=== PATIENT | male | born 1980 | race Caucasian/White ===

== ENCOUNTER 2018-08-06 14:11 | Emergency (ER) | payer BC ==
--- NOTE | 2018-08-06 14:18 | PDOC ---
History of Present Illness - General Chief Complaint: Pain Stated Complaint: ABDOMINAL PAIN LOOSE STOOL Time Seen by Provider: 08/06/18 14:16 - History of Present Illness Initial Comments: 08/06/18 14:17 Mr. Calvert is a 37 yo male w/ no significant pmh who presents for evaluation of diarrhea. Patient reports symptoms first started Jul.14 when he returned from [place] and experienced abdominal pain and diarrhea. He had initially attributed this to traveler's diarrhea and says that his symptoms went away after a few days, however they started again last Saturday (08/01) and he has since had several days of diarrhea with subjective fevers and chills; nausea; and intermittent generalized abdominal pain. The patient denies chest pain, shortness of breath, headache and dizziness. Denies dysuria, frequency, urgency and hematuria. Past History - Past Medical History Allergies/Adverse Reactions: Allergies Allergy/AdvReac Type Severity Reaction Status Date / Time No Known Allergies Allergy Verified 08/06/18 14:20 Home Medications: Ambulatory Orders Ondansetron HCl [Zofran] 4 mg PO TID PRN #15 tablet 08/06/18 Disorders: Yes (PUD YEARS AGO) - Suicide/Smoking/Psychosocial Hx Smoking History: Current some day smoker Number of Cigarettes Smoked Daily: 0 'Breaking Loose' booklet given: 11/04/14 Hx Alcohol Use: Yes (NOT DAILY) Substance Use Type: None Review of Systems - Review of Systems Comments:: 08/06/18 14:17 GENERAL/CONSTITUTIONAL: No fever or chills. No weakness. HEAD, EYES, EARS, NOSE AND THROAT: No change in vision. No ear pain or discharge. No sore throat. CARDIOVASCULAR: No chest pain or shortness of breath RESPIRATORY: No cough, wheezing, or hemoptysis. GASTROINTESTINAL: +Abdominal pain with diarrhea as described. No constipation. GENITOURINARY: No dysuria, frequency, or change in urination. MUSCULOSKELETAL: No joint or muscle swelling or pain. No neck or back pain. SKIN: No rash NEUROLOGIC: No headache, vertigo, loss of consciousness, or change in strength/ sensation. ENDOCRINE: No increased thirst. No abnormal weight change HEMATOLOGIC/LYMPHATIC: No anemia, easy bleeding, or history of blood clots. ALLERGIC/IMMUNOLOGIC: No hives or skin allergy. *Physical Exam - Physical Exam Comments: 08/06/18 14:17 GENERAL: Awake, alert, and fully oriented, in no acute distress HEAD: No signs of trauma, normocephalic, atraumatic EYES: PERRLA, EOMI, sclera anicteric, conjunctiva clear ENT: Auricles normal inspection, hearing grossly normal, nares patent, oropharynx clear without exudates. Moist mucosa NECK: Normal ROM, supple, no lymphadenopathy, JVD, or masses LUNGS: No distress, speaks full sentences, clear to auscultation bilaterally HEART: Regular rate and rhythm, normal S1 and S2, no murmurs, rubs or gallops, peripheral pulses normal and equal bilaterally. ABDOMEN: +Minimal abdominal generalized tenderness. Soft, normoactive bowel sounds. No guarding, no rebound. No masses EXTREMITIES: Normal inspection, Normal range of motion, no edema. No clubbing or cyanosis. NEUROLOGICAL: Cranial nerves II through XII grossly intact. Normal speech, normal gait, no focal sensorimotor deficits SKIN: Warm, Dry, normal turgor, no rashes or lesions noted. ED Treatment Course - LABORATORY CBC & Chemistry Diagram: 08/06/18 14:51 08/06/18 14:51 Medical Decision Making - Medical Decision Making 08/06/18 16:05 Mr. Calvert is a 37 yo male w/ pmh as described who presents for evaluation of symptoms concerning for infection vs. viral illness. Patient workup started as below with electrolytes, CBC, stool culture and ova and parasite exam (stool). Patient labs grossly wnl. No concerning findings at this time. Will discharge patient with callback for stool cultures and O/P exam results. Patient reporting improvement of symptoms with 1L NS IV Hydration. Zofran sent to patient's pharmacy for further symptomatic relief. Laboratory Results - last 24 hr 08/06/18 08/06/18 08/06/18 14:51 14:51 14:51 WBC 4.8 RBC 4.47 Hgb 13.5 Hct 40.2 MCV 90.0 MCH 30.2 MCHC 33.5 RDW 11.4 L Plt Count 287 MPV 8.0 Absolute Neuts (auto) 2.6 Neutrophils % 52.5 Lymphocytes % 33.9 Monocytes % 12.8 H Eosinophils % 0.6 Basophils % 0.2 Sodium 137 Potassium 3.7 Chloride 107 Carbon Dioxide 25 Anion Gap 5 L BUN 19 H Creatinine 1.1 Creat Clearance w eGFR > 60 Random Glucose 85 Calcium 8.9 Total Bilirubin 0.5 AST 34 ALT 33 Alkaline Phosphatase 59 Total Protein 6.6 Albumin 4.1 Lipase 169 *DC/Admit/Observation/Transfer Diagnosis at time of Disposition: Diarrhea Qualifiers: Diarrhea type: unspecified type Qualified Code(s): R19.7 - Diarrhea, unspecified - Discharge Dispostion Disposition: HOME Condition at time of disposition: Stable - Referrals - Patient Instructions Printed Discharge Instructions: DI for Diarrhea and Traveler's Diarrhea -- Adult Additional Instructions: You were evaluated today in the emergency room for your diarrhea. No concerning findings were found at this time. We are currently processing tests on your stool and will contact you with any positive findings. Please follow-up with primary care provider later this week for further evaluation. We have also sent a prescription to your pharmacy for nausea control. Take all medications as proscribed. You may take over the counter motrin or tylenol for pain control per package instructions as needed. Return to ER if any fever, chills, increase in pain, or other concerning symptoms. - Post Discharge Activity
--- NOTE | 2018-08-06 14:27 | PDOC ---
Attending Attestation - Resident Resident Name: Epifanio Holder - ED Attending Attestation I have performed the following: I have examined & evaluated the patient, The case was reviewed & discussed with the resident, I agree w/resident's findings & plan, Exceptions are as noted - HPI HPI: 08/06/18 16:11 Mr Swain is a 38 yo M who presents to the ER with a complaint of diarrhea Pt states that he returned from on 07/14. After this, he noted diarrhea for 3 days which resolved Approximately 5 days ago, his diarrhea returned and has been persistent since then He has 10 - 15 episodes of diarrhea - non blood, non mucoid, light colored stools Pt states that when he eats, it triggers abdominal pain and diarrhea He denies h/o Ulcerative Colitis or Crohn's disease - Physicial Exam PE: 08/06/18 16:18 On examination: Pt is awake and alert Answers questions appropriately Dry mucous membranes RRR, no murmur CTA B/L Abd soft non distended, LUQ tenderness No involuntary guarding or rebound NO rash noted on skin No jaundice or scleral icterus - Medical Decision Making 08/06/18 16:20 Laboratory Tests 08/06/18 08/06/18 08/06/18 14:51 14:51 14:51 WBC 4.8 Hgb 13.5 Hct 40.2 Plt Count 287 BUN 19 H Creatinine 1.1 AST 34 ALT 33 Lipase [address] Pt was able to give stool samples, sent to the Lab Stool is non bloody, non mucoid - doubt invasive bacteria Pt hydrated in the ER D/c to home Will call with stool results Will give cipro Pt will follow up with his PMD Dr Marcus within 1 week Return to the ER for increased pain, fevers, dehydration
[2018-08-06 14:35] VITALS: BP 134/71; PULSE 73; TEMP 98.6; BMI 24.8
[2018-08-06] MEDS ORDERED: SODIUM CHLORIDE 1,000 ML IV STA (14:36)
[2018-08-06 15:17] LABS: ALBUMIN 4.1 g/dl (3.5-5.0); ALK PHOS 59 U/L (32-92); ANION GAP 5 MMOL/L (8-16); BILIRUBIN,TOTAL 0.5 mg/dl (0.2-1.0); BLOOD UREA NITROGEN 19 mg/dl (7-18); CALCIUM 8.9 mg/dl (8.4-10.2); CHLORIDE 107 mmol/L (98-107); CO2 25 mmol/L (22-28); CREATININE 1.1 mg/dl (0.6-1.3); GLUCOSE,RANDOM 85 mg/dl (74-106); POTASSIUM 3.7 mmol/L (3.5-5.1); SGOT/AST 34 U/L (10-42); SGPT/ALT 33 U/L (10-40); SODIUM 137 mmol/L (136-145); TOT PROT 6.6 g/dl (6.4-8.3)
[2018-08-06 15:22] LABS: BASO % 0.2 % (0-2.0); EOS % 0.6 % (0-4.5); HEMATOCRIT 40.2 % (35.4-49); HEMOGLOBIN 13.5 GM/dl (11.7-16.9); LYMPH % 33.9 % (8-40); MCH 30.2 pg (25.7-33.7); MCHC 33.5 g/dl (32.0-35.9); MONO % 12.8 % (3.8-10.2); NEUT % 52.5 % (42.8-82.8); PLATELET COUNT 287 K/MM3 (134-434); RBC 4.47 M/mm3 (4.00-5.60); RDW 11.4 % (11.9-15.9); WHITE BLOOD COUNT 4.8 K/mm3 (4.0-10.8)
== END 2018-08-06 16:21 | disposition home or self-care (01) ==
LOC: FER 14:11
PROC: 3E0337Z Introduction of Electrolytic and Water Balance Substance into Peripheral Vein, Percutaneous Approach (ICD-10-PCS; principal; 2018-08-06)
DX: R19.7 Diarrhea, unspecified (principal); F17.210 Nicotine dependence, cigarettes, uncomplicated; K27.9 Peptic ulcer, site unspecified, unspecified as acute or chronic, without hemorrhage or perforation
CPT/HCPCS: 36415; 80053; 83690; 85025; 87045; 87046; 87177; 87209; 99283-25; J7030

== ENCOUNTER 2020-06-06 11:23 | Emergency (ER) | payer BC ==
[2020-06-06 11:32] VITALS: BP 133/62; PULSE 68; TEMP 98.3; BMI 26.4
[2020-06-06] MEDS ORDERED: KETOROLAC TROMETHAMINE 60 MG/2 ML VIAL IM ONE (12:12)
[2020-06-06] MEDS ORDERED: CYCLOBENZAPRINE HCL 10 MG TABLET (FP) PO ONE (12:12)
[2020-06-06] MEDS ORDERED: KETOROLAC TROMETHAMINE 60 MG/2 ML VIAL ONE (12:15)
[2020-06-06] MEDS ORDERED: CYCLOBENZAPRINE HCL 10 MG TABLET (FP) ONE (12:15)
--- NOTE | 2020-06-06 12:19 | PDOC ---
History of Present Illness - General Chief Complaint: Injury Stated Complaint: BACK PAIN Time Seen by Provider: 06/06/20 11:51 History Source: Patient Exam Limitations: No Limitations - History of Present Illness Initial Comments: 06/06/20 12:14 39y M no pmhx presents with back pain - The patient was trying to push/left something and then With a sharp pain in his left lower back associated with some radiation of pain down his right leg. He denies any urinary bowel incontinence, denies any focal weakness. He denies any other injuries. Not yet taken any pain medication. Denies any fever, chills, chest pain, shortness of breath, abdominal pain, denies any pain in the testicular or groin area. dneies ivdu Past History - Medical History Allergies/Adverse Reactions: Allergies Allergy/AdvReac Type Severity Reaction Status Date / Time No Known Allergies Allergy Verified 06/06/20 11:23 Home Medications: Ambulatory Orders Cyclobenzaprine HCl [Flexeril 10 mg] 10 mg PO BID PRN #60 tablet 06/06/20 Ibuprofen 400 mg PO QID PRN #30 tablet 06/06/20 COPD: No Disorders: Yes (PUD YEARS AGO) - Psycho-Social/Smoking History Smoking History: Never smoked Have you smoked in the past 12 months: No Number of Cigarettes Smoked Daily: 0 If you are a former smoker, when did you quit?: SOCIAL Information on smoking cessation initiated: No 'Breaking Loose' booklet given: 11/04/14 - Substance Abuse Hx (Audit-C & DAST Scrn) How often the patient has a drink containing alcohol: Monthly or less Score: In Men: 4 or > Positive; In Women: 3 or > Positive: 1 Screen Result (Pos requires Nsg. Audit-10AR): Negative In the last yr the pt used illegal drug/Rx for NonMed reason: No Score: Yes response is considered Positive: 0 Screen Result (Positive result requires Nsg. DAST-10): Negative Review of Systems - Review of Systems Able to Perform ROS?: Yes Comments:: 06/06/20 12:16 Constitutional - no reported Fever, Chills, Cardiac: no reported chest pain, palpitations, Abd/GI: no reported abd pain, nausea, vomiting, : no reported urinary incontinence Musculskelatal - +back pain radiating down his R leg no reported joint swelling skin - no reported bruising, erythema, rash neurological: no reported headache, numbness, focal weakness, tingling, ataxia, *Physical Exam - Vital Signs Last Vital Signs Temp Pulse Resp BP Pulse Ox 98.3 F 68 18 133/62 99 06/06/20 11:23 06/06/20 11:23 06/06/20 11:23 06/06/20 11:23 06/06/20 11:23 - Physical Exam 06/06/20 12:17 GENERAL: The patient is awake, alert, and fully oriented, Nontoxic - in no acute distress. HEAD: Normocephalic, atraumatic. EYES: extraocular movements intact, sclera anicteric, conjunctiva clear. ENT: Normal voice, Moist mucous membranes. NECK: Normal range of motion, supple LUNGS: Breath sounds equal, clear to auscultation bilaterally. No wheezes, no rhonchi, no rales. HEART: Regular rate and rhythm, normal S1 and S2 without murmur, rub or gallop. ABDOMEN: Soft, nontender, No guarding, no rebound. No CVA tenderness EXTREMITIES: Normal range of motion, no edema. BACK: mild L parapsinal lumbar tenderness, no erythema/induration, no focal bony tenderness on cervical/throacic/lumbar spine NEUROLOGICAL: No facial assymetry, Normal speech, Moving All 4 extremities spontaneously symmetrically PSYCH: Normal mood, normal affect. SKIN: Warm, Dry, normal turgor, Medical Decision Making - Medical Decision Making 06/06/20 12:18 Suspect back strain, will give Toradol Flexeril No red flags Nop Focal neurologic complaints 06/06/20 12:50 Patient is feelingBetter, ambulatory Will discharge patient with outpatient follow-up Return precautions were discussed I discussed the physical exam findings, ancillary test results and final diagnoses with the patient. I answered all of the patient's questions. The patient was satisfied with the care received and felt comfortable with the discharge plan and treatment plan. The patient will call their primary care physician within 24 hours to arrange follow-up and will return to the Emergency Department with any new, persistent or worsening symptoms. Discharge - Discharge Information Problems reviewed: Yes Clinical Impression/Diagnosis: Low back strain Qualifiers: Encounter type: initial encounter Qualified Code(s): S39.012A - Strain of muscle, fascia and tendon of lower back, initial encounter Sciatica Qualifiers: Laterality: right Qualified Code(s): M54.31 - Sciatica, right side Condition: Stable - Admission No - Additional Discharge Information Prescriptions: Cyclobenzaprine HCl [Flexeril 10 mg] 10 mg PO BID PRN #60 tablet PRN Reason: Pain Ibuprofen 400 mg PO QID PRN #30 tablet PRN Reason: Pain - Follow up/Referral Referrals: Elana Milner MD [Primary Care Provider] - - Patient Discharge Instructions Patient Printed Discharge Instructions: DI for Back Pain With Sciatica Additional Instructions: Return to the emergency department immediately with ANY new, persistent or worsening symptoms including numbness, tingling, weakness, fevers or any other concerns. Take ibuprofen (400mg)/tylenol(650mg) every 6 hours for 2 days. Take the Flexeril twice daily if you still have pain/discomfort. Caution in using Flexeril as it may make you sleepy. Do not drive or put yourself in any position where you would be in danger. Apply heat to your sore muscles. You MUST call and follow up with your doctor in 3-4 days for further evaluation of your symptoms. Your emergency department visit is not complete without a followup with your doctor for reevaluation.. Results were discussed with you. Please make sure your doctor reviews the results of your emergency evaluation. - Post Discharge Activity Work/Back to School Note: Back to Work
== END 2020-06-06 12:56 ==
LOC: FER 11:23
PROC: 3E0233Z Introduction of Anti-inflammatory into Muscle, Percutaneous Approach (ICD-10-PCS; principal; 2020-06-06)
DX: S39.012A Strain of muscle, fascia and tendon of lower back, initial encounter (principal); M54.31 Sciatica, right side
CPT/HCPCS: 99284-25